=== PATIENT | male | born 1950 | race Caucasian/White ===

== ENCOUNTER → 2016-07-20 | Outpatient (CLI) | payer BC ==
[~2016-07-20] MED LIST: LSNUNK; bp med
--- NOTE | 2016-07-20 14:22 | DIAGNOSTIC IMAGING REPORT ---
RIGHT FOOT 3 VIEWS HISTORY: Acute foot pain, electrical battery fell on R foot Right COMPARISON: None. FINDINGS: No acute fracture or dislocation within the right foot. The Lisfranc joint is well aligned. 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 Small posterior calcaneal spur. Moderate osteoarthritis at the tibiotalar joint. Old, healed distal tibial fracture. No radiopaque foreign bodies. IMPRESSION: No acute fracture or dislocation within the right foot. Chronic and degenerative changes as described above. Electronically signed by: David Christine M.D. 07/20/2016 2:21 PM Dictated Date/Time: 07/20/2016 2:19 PM
== END | disposition home or self-care (01) ==
LOC: C.RADPV 13:39
PROVIDERS: ATTEND Nurse Practitioner
DX: M79.671 Pain in right foot (principal); M19.071 Primary osteoarthritis, right ankle and foot; M25.774 Osteophyte, right foot; M77.31 Calcaneal spur, right foot

== ENCOUNTER 2023-12-03 19:21 | Inpatient (IN) ==
--- NOTE | 2023-12-03 19:50 | Emergency Department Note ---
Impression & Plan Dyspnea ADMIT ED Provider Note HPI: History obtained from patient. The patient is a 73-year-old gentleman with history of small cell lung cancer, currently on chemotherapy, history of atrial fibrillation, on Eliquis, presents to the emergency department with a chief complaint of shortness of breath. Patient states he does have some baseline dyspnea with his history of lung cancer, he states today his shortness of breath seemed worse. Patient states "I could not get my breath". Patient denies any chest pain. On arrival here to the ED at rest in the bed the patient is saturating well on room air, he is otherwise hemodynamically stable on arrival, he denies any recent fever or cough. ROS: - Per HPI Differential Diagnosis: Pneumonia, CHF exacerbation, pulmonary edema, malignant pleural effusion, metastatic lung cancer, pulmonary embolism, amongst other potential pathologies. *Outpatient medications and allergy history reviewed. PE: General: Alert HEENT: Normocephalic, trachea midline Eyes: Extraocular eye movement is intact, no scleral erythema Pulmonary: Diminished left-sided lung sounds without any wheezing Cardio: Regular rate and rhythm GI: Abdomen is soft to palpation : No suprapubic tenderness MSK: No evidence of trauma or malformation of the extremities, no edema Skin: No evidence of rash Neuro: Alert, no focal deficits Psychiatric: Cooperative INDEPENDENT INTERPRETATIONS: school lunch monitor: (As interpreted by myself): - An order was placed for continuous cardiac monitoring - Patient was noted to be in sinus rhythm with a rate of 90 EKG: (As interpreted by myself): Rate: 98 Rhythm: Normal sinus rhythm Intervals: Within normal limits ST changes: No ST elevation Time: 7 Chest x-ray: (As interpreted by myself): Left lower lobe effusion Interventions provided in ED: -Packed red blood cell transfusion, platelet transfusion Medical Decision Making: IV was established and lab work obtained, patient was placed on athletic monitor. Lab work shows a leukopenia at 3.49, hemoglobin is low at 5.3, platelet count is also low at 20, INR is 2.0, CMP does not show any critical findings, troponin is negative. BNP is mildly elevated at 184, viral panel testing is negative. Chest x-ray suggestive of left-sided effusion. Patient does remain hemodynamically stable otherwise here in the ED. He was consented for transfusion who was in agreement. I did discuss his presentation with the patient's hematology/oncology provider, Dr. Ballesteros, he is in agreement for packed red blood cell transfusion as well as platelet transfusion, recommends goal of platelet count at 50 or above and stopping the patient's Eliquis. Patient does not note any recent bleeding or melena. I suspect given his pancytopenia that his anemia is likely related to his chemotherapy and some bone marrow suppression. I discussed the patient's findings with the on-call hospitalist, Dr. Abreu. CT imaging of the chest with contrast was ordered to further characterize the patient's effusion prior to admission. Patient is in agreement for admission and he was placed for admission in stable condition. Consultants/Discussions held with other healthcare providers: -Hematology/oncology, Dr. Ballesteros -Hospitalist, Dr. Abreu Disposition discussion held by myself with: -Patient * CRITICAL CARE TIME: ( 50 ) minutes -Stabilization of patient with symptomatic anemia with hemoglobin of 5.3 and platelet count of 20 requiring both packed red blood cell and platelet transfusions. Time spent at the bedside, interpretation of diagnostic studies, discussion with multiple other consulting physicians and arrangement of admission. Diagnosis: 1. Symptomatic anemia, acute 2. Thrombocytopenia, acute 3. History of small cell lung cancer with metastatic disease to the liver 4. Left-sided pleural effusion, acute Disposition: Admission Marck Moffett DO Emergency Medicine Past Med/Surg History Problem List (Updated 12/03/23 @ 23:21 by Marck Moffett DO) Dyspnea (Acute) Small cell lung cancer New onset atrial fibrillation Encounter for pre-operative examination Lung cancer Depression Pleural effusion Liver lesion, right lobe Abnormal CT of the abdomen Abnormal PSA acceleration with normal PSA BPH associated with nocturia (Chronic) Microscopic hematuria (Acute) Low back pain Abnormal skin growth Diabetes mellitus Urinary frequency GERD (gastroesophageal reflux disease) Hyperlipidemia (Chronic) Hypertension (Chronic) Medical History GERD (gastroesophageal reflux disease) Low back pain BPH (benign prostatic hyperplasia) Liver lesion Hx of pleural effusion (09/2023) Diabetes Depression Chronic cough Hyperlipidemia HTN (hypertension) History of COVID-19 (2020) Lung cancer (08/2023) Surgical History Port-A-Cath in place (11/16/23) History of thoracentesis (09/11/23) History of left knee replacement Hx of colonoscopy History of liver biopsy History of surgical procedure H/O oral surgery H/O skin graft Family History Father Diabetes Hypertension Denies family history of Ovarian cancer Prostate cancer Heart disease Myocardial infarction Breast cancer Colorectal cancer Stroke Social History Smoking Status: Former smoker Tobacco Type: Cigarettes and E-cigarettes / Vaping Age Started Using Tobacco: 21; packs per day: 1; Second Hand Exposure: No; Do You Dip or Chew Tobacco: No; Hx Alcohol Use: No Hx Substance Use: Yes (medical marijuana) Non-Prescribed Medications: Marijuana Last Used Substance Other:: 11/05/23 Preferred Language: Slovak Communication Ability: Effective Hearing Ability: Hard of Hearing Admissions Consultant Required: No Beliefs That Will Affect Care: None marital status: Single Current Living Situation: Alone current occupational status: retired How many Children do You have: 0 Feels Safe at Home: Yes Childhood Exposure to Second-Hand Smoke: Yes Diet: regular caffeine: Yes during the past year weight has: decreased > 10 lbs Dental Care, Regularly: Yes Physical Activity Frequency: Daily Seatbelt Use: always Sunscreen Use: No Assistive Devices: Denture - Upper, Denture - Lower and Glasses Allergies Allergies Allergy/AdvReac Type Severity Reaction Status Date / Time No Known Allergies Allergy Verified 11/16/23 05:55 Home Meds Home Medications Medication Instructions Recorded Confirmed multivitamin (Multiple Vitamins 1 tab PO DAILY 09/22/18 11/16/23 tablet) omega-3 acid ethyl esters 1 gram 1 cap PO DAILY 09/22/18 11/16/23 capsule potassium gluconate 595 mg (99 mg) 595 mg PO DAILY 09/22/18 11/16/23 tablet Medical Marijuana 1 dose PO HS appetite stimulant 11/06/23 11/16/23 dronabinol 10 mg capsule (Marinol) 10 mg PO QAM 11/06/23 11/16/23 alfuzosin 10 mg tablet,extended 10 mg PO DAILY 11/16/23 11/16/23 release 24 hr (Uroxatral) Previous Rx's Medication Instructions Recorded atorvastatin 10 mg tablet See Rx Instructions .Route 05/18/23 .COMPLEX #30 tabs albuterol sulfate 90 mcg/actuation 2 puff inhalation QID PRN 08/28/23 aerosol inhaler shortness of breath or wheezing #8.5 grams codeine 10 mg-guaifenesin 100 mg/5 5 ml PO Q6H PRN cough #120 mL 09/28/23 mL oral liquid metformin 500 mg tablet,extended 500 mg PO BID #60 tabs 09/29/23 release 24 hr benzonatate 200 mg capsule 200 mg PO TID PRN cough #20 caps 10/23/23 apixaban 5 mg tablet (Eliquis) 5 mg PO BID #60 tabs 11/16/23 metoprolol succinate 25 mg capsule 25 mg PO DAILY #30 ea 11/16/23 sprinkle, ext. release 24 hr Results & Data (ED) Vital Signs Vital Signs - 24 hr 12/03/23 19:22 12/03/23 19:26 12/03/23 19:31 Temperature 36.8 C Temperature Source Oral Pulse Rate 97 H 97 H Pulse Rate [Apical] Pulse Rate from SpO2 Sensor Respiratory Rate 17 Blood Pressure 140/71 Blood Pressure [Left Arm] Blood Pressure Mean 94 Blood Pressure Mean [Left Arm] Pulse Oximetry 98 Oxygen Delivery Method Room Air Room Air Sepsis Recent Fever Within 48 Hours No Sepsis New/Unexplained Change in Mental Status N/A Sepsis Action Taken by Nursing No Action Required 12/03/23 19:44 12/03/23 20:00 12/03/23 20:00 Temperature Temperature Source Pulse Rate 88 Pulse Rate [Apical] 90 Pulse Rate from SpO2 Sensor Respiratory Rate 20 23 Blood Pressure 132/65 Blood Pressure [Left Arm] 138/71 Blood Pressure Mean 106 Blood Pressure Mean [Left Arm] 93 Pulse Oximetry 98 98 97 Oxygen Delivery Method Room Air Room Air Sepsis Recent Fever Within 48 Hours Sepsis New/Unexplained Change in Mental Status Sepsis Action Taken by Nursing 12/03/23 20:47 12/03/23 21:11 12/03/23 21:31 Temperature Temperature Source Pulse Rate 99 H Pulse Rate [Apical] 88 91 H Pulse Rate from SpO2 Sensor 99 H Respiratory Rate 20 22 24 Blood Pressure Blood Pressure [Left Arm] 129/69 138/70 Blood Pressure Mean Blood Pressure Mean [Left Arm] 89 92 Pulse Oximetry 97 96 97 Oxygen Delivery Method Sepsis Recent Fever Within 48 Hours Sepsis New/Unexplained Change in Mental Status Sepsis Action Taken by Nursing 12/03/23 22:00 12/03/23 22:20 12/03/23 22:33 Temperature 37.0 C 37.0 C Temperature Source Oral Oral Pulse Rate 88 87 83 Pulse Rate [Apical] Pulse Rate from SpO2 Sensor Respiratory Rate 24 18 18 Blood Pressure 146/71 H 146/71 H 138/71 Blood Pressure [Left Arm] Blood Pressure Mean 112 96 93 Blood Pressure Mean [Left Arm] Pulse Oximetry 97 98 96 Oxygen Delivery Method Sepsis Recent Fever Within 48 Hours Sepsis New/Unexplained Change in Mental Status Sepsis Action Taken by Nursing 12/03/23 22:36 12/03/23 22:47 12/03/23 22:49 Temperature 36.9 C 36.9 C 36.9 C Temperature Source Oral Oral Oral Pulse Rate 89 85 86 Pulse Rate [Apical] Pulse Rate from SpO2 Sensor Respiratory Rate 24 24 Blood Pressure 132/70 136/80 137/70 Blood Pressure [Left Arm] Blood Pressure Mean 90 98 92 Blood Pressure Mean [Left Arm] Pulse Oximetry 99 97 Oxygen Delivery Method Sepsis Recent Fever Within 48 Hours Sepsis New/Unexplained Change in Mental Status Sepsis Action Taken by Nursing 12/03/23 22:51 Temperature 36.9 C Temperature Source Oral Pulse Rate 86 Pulse Rate [Apical] Pulse Rate from SpO2 Sensor Respiratory Rate 24 Blood Pressure 138/73 Blood Pressure [Left Arm] Blood Pressure Mean 94 Blood Pressure Mean [Left Arm] Pulse Oximetry 98 Oxygen Delivery Method Sepsis Recent Fever Within 48 Hours Sepsis New/Unexplained Change in Mental Status Sepsis Action Taken by Nursing Laboratory Data 12/03/23 19:30 12/03/23 19:30 Lab Results 12/03/23 12/03/23 12/03/23 Range/Units 19:30 20:41 21:09 WBC 3.49 L (4.8-10.8) K/ul RBC 1.78 L (4.70-6.10) M/uL Hgb 5.3 L* (14.0-18.0) g/dl Hct 15.8 L* (42.0-52.0) % MCV 88.8 (80.0-100.0) fL MCH 29.8 (25.0-34.0) pg MCHC 33.5 (32.0-36.0) g/dL RDW Std Deviation 50.2 H (36.4-46.3) fL RDW Coeff of Allan 15.7 H (11.5-14.5) % Plt Count 20 L* (130-400) K/uL MPV 12.2 (9.4-12.4) fL Immature Gran % (Auto) 0.3 % Neut % (Auto) 60.5 % Lymph % (Auto) 31.5 % Preble % (Auto) 6.3 % Eos % (Auto) 1.1 % Baso % (Auto) 0.3 % Neut # (Auto) 2.11 (1.40-6.50) K/uL Lymph # (Auto) 1.10 L (1.20-3.40) K/uL Preble # (Auto) 0.22 (0.11-0.59) K/uL Eos # (Auto) 0.04 (0.00-0.50) K/uL Baso # (Auto) 0.01 (0.00-0.20) K/uL Immature Gran # (Auto) 0.01 (0.01-0.20) K/uL Absolute Nucleated RBC 0.02 (0.00-0.12) K/uL Nucleated RBC % (auto) 0.6 % Platelet Estimate Signific. Decreased L (Normal) PT 20.8 H (9.0-12.0) Seconds INR 2.0 H (0.9-1.1) Sodium 134 L (136-145) mmol/L Potassium 4.0 (3.5-5.1) mmol/L Chloride 101 (98-107) mmol/L Carbon Dioxide 24 (21-32) mmol/L Anion Gap 9 (3-11) BUN 14 (6-23) mg/dl Creatinine 0.72 (0.6-1.4) mg/dl Est Cr Clr Drug Dosing 84.9 ml/min eGFR 97.07 BUN/Creatinine Ratio 19.4 (10-20) Glucose 127 H (70-99(Fasting)) mg/dl Calcium 8.4 L (8.6-10.3) mg/dl Total Bilirubin 0.8 (0.2-1.0) mg/dl AST 40 H (13-39) U/L ALT 18 (7-52) U/L Alkaline Phosphatase 204 H (34-104) U/L Troponin I High Sens 7.3 (0-20) pg/ml B-Natriuretic Peptide 184 H (0-100) pg/ml Total Protein 5.7 L (6.0-8.3) gm/dl Albumin 3.3 L (3.4-5.0) gm/dl Globulin 2.4 L (2.5-4.0) gm/dl Albumin/Globulin Ratio 1.4 (0.9-2) Adenovirus (PCR) (NotDetected) B. pertussis DNA (PCR) (NotDetected) B.parapertussis DNA PCR (NotDetected) C. pneumoniae DNA (PCR) (NotDetected) Coronavirus OC43 (PCR) (NotDetected) Coronavirus HKU1 (PCR) (NotDetected) Coronavirus 229E (PCR) (NotDetected) SARS-CoV-2 (PCR) (NotDetected) Coronavirus NL63 (PCR) (NotDetected) Human Metapneumovir PCR (NotDetected) Influenza Type A (PCR) (NotDetected) Influenza Type B (PCR) (NotDetected) M. pneumoniae (PCR) (NotDetected) Parainfluenza 1 (PCR) (NotDetected) Parainfluenza 2 (PCR) (NotDetected) Parainfluenza 3 (PCR) (NotDetected) Parainfluenza 4 (PCR) (NotDetected) RSV (PCR) (NotDetected) Entero/Rhino (PCR) (NotDetected) Blood Type O Positive Blood Type Recheck O Positive Antibody Screen NEGATIVE Crossmatch See Detail 12/03/23 Range/Units Unknown WBC (4.8-10.8) K/ul RBC (4.70-6.10) M/uL Hgb (14.0-18.0) g/dl Hct (42.0-52.0) % MCV (80.0-100.0) fL MCH (25.0-34.0) pg MCHC (32.0-36.0) g/dL RDW Std Deviation (36.4-46.3) fL RDW Coeff of Allan (11.5-14.5) % Plt Count (130-400) K/uL MPV (9.4-12.4) fL Immature Gran % (Auto) % Neut % (Auto) % Lymph % (Auto) % Preble % (Auto) % Eos % (Auto) % Baso % (Auto) % Neut # (Auto) (1.40-6.50) K/uL Lymph # (Auto) (1.20-3.40) K/uL Preble # (Auto) (0.11-0.59) K/uL Eos # (Auto) (0.00-0.50) K/uL Baso # (Auto) (0.00-0.20) K/uL Immature Gran # (Auto) (0.01-0.20) K/uL Absolute Nucleated RBC (0.00-0.12) K/uL Nucleated RBC % (auto) % Platelet Estimate (Normal) PT (9.0-12.0) Seconds INR (0.9-1.1) Sodium (136-145) mmol/L Potassium (3.5-5.1) mmol/L Chloride (98-107) mmol/L Carbon Dioxide (21-32) mmol/L Anion Gap (3-11) BUN (6-23) mg/dl Creatinine (0.6-1.4) mg/dl Est Cr Clr Drug Dosing ml/min eGFR BUN/Creatinine Ratio (10-20) Glucose (70-99(Fasting)) mg/dl Calcium (8.6-10.3) mg/dl Total Bilirubin (0.2-1.0) mg/dl AST (13-39) U/L ALT (7-52) U/L Alkaline Phosphatase (34-104) U/L Troponin I High Sens (0-20) pg/ml B-Natriuretic Peptide (0-100) pg/ml Total Protein (6.0-8.3) gm/dl Albumin (3.4-5.0) gm/dl Globulin (2.5-4.0) gm/dl Albumin/Globulin Ratio (0.9-2) Adenovirus (PCR) Not Detected (NotDetected) B. pertussis DNA (PCR) Not Detected (NotDetected) B.parapertussis DNA PCR Not Detected (NotDetected) C. pneumoniae DNA (PCR) Not Detected (NotDetected) Coronavirus OC43 (PCR) Not Detected (NotDetected) Coronavirus HKU1 (PCR) Not Detected (NotDetected) Coronavirus 229E (PCR) Not Detected (NotDetected) SARS-CoV-2 (PCR) Not Detected (NotDetected) Coronavirus NL63 (PCR) Not Detected (NotDetected) Human Metapneumovir PCR Not Detected (NotDetected) Influenza Type A (PCR) Not Detected (NotDetected) Influenza Type B (PCR) Not Detected (NotDetected) M. pneumoniae (PCR) Not Detected (NotDetected) Parainfluenza 1 (PCR) Not Detected (NotDetected) Parainfluenza 2 (PCR) Not Detected (NotDetected) Parainfluenza 3 (PCR) Not Detected (NotDetected) Parainfluenza 4 (PCR) Not Detected (NotDetected) RSV (PCR) Not Detected (NotDetected) Entero/Rhino (PCR) Not Detected (NotDetected) Blood Type Blood Type Recheck Antibody Screen Crossmatch Administered Medications Discontinued Medications Ioversol (Optiray 320 100ml) 94 ml IV ONCE ONE Stop: 12/03/23 21:01 Last Admin: 12/03/23 21:00 Dose: 94 ml Documented By: [place] [facility] Data Radiologist's Impression: Chest X-Ray 12/03/23 19:43 XR chest 1V portable CLINICAL HISTORY: Dyspnea COMPARISON STUDY: Chest CT August 31, 2023. PET/CT October 18, 2023. Chest radiograph November 16, 2023. FINDINGS: A left subclavian [id number] is in place. There is no pneumothorax. A moderate to large left pleural effusion has slightly increased since prior exam. Associated airspace opacity is present. This obscures the known left sided mass. Pulmonary vascular congestion is again noted. There are several old right rib fractures. IMPRESSION: 1. Increase in size of a moderate to large left pleural effusion. Associated airspace opacity obscures the known left-sided mass. 2. Pulmonary vascular congestion, similar to prior exam. 3. No pneumothorax. ACT 112: Negative or not required by law. Electronically signed by: Alex Granda M.D. 12/03/2023 8:[address] 12/03/23 20:07 Exam(s): CT CHEST With Contrast IV Amt: 94 ml optiray 320 EXAM: CT Chest With Intravenous Contrast CLINICAL HISTORY: eval L sided effusion. TECHNIQUE: Axial computed tomography images of the chest with intravenous contrast. CTDI is 15.98 mGy and DLP is 524.36 mGy-cm. Automated exposure control was utilized for the study. A dose lowering technique was utilized adhering to the principles of ALARA. CONTRAST: Patient received 94 ml optiray 320 of IV contrast COMPARISON: CT chest with contrast dated 08/31/2023 FINDINGS: Lungs: Interlobular septal thickening noted in the aerated anterior left upper lobe. The right lung remains well-aerated. There are subtle subcentimeter nodular changes involving the juxtapleural right lateral basal segment. Pleural space: The moderate left pleural effusion remains. No appreciable pleural nodularity or loculation. No pneumothorax. Heart: The cardiac chambers are upper normal limits. Trace pericardial effusion. Mediastinum: Interval increase in size of the abnormal mass, predominantly located in the hilar and subcarinal region, now measuring 8. 6 x 8.3 cm on a single transaxial image from 7 x 7.3 cm. The adjacent completely collapsed left lower lung is also larger in size and now demonstrates relative hypodense heterogeneous margins medially. Confluent subcarinal soft tissue mass is similar to slightly increased in size. Bones/joints: Unremarkable. No acute fracture. No dislocation. Soft tissues: Mild soft tissue fullness with fat stranding involving the inferior left thoracic soft tissues. No loculated fluid collection. Vasculature: The pulmonary artery branches serving the collapsed left lower lobe are attenuated, presumably from the lack of aeration or potentially from extrinsic compression by the mass. No filling defects noted. The thoracic aorta is normal in caliber. No dissection or aneurysm. Lymph nodes: Unremarkable. No enlarged lymph nodes. Liver: Extensive and diffuse metastatic disease nearly replacing the entire included superior to mid liver. Tubes, lines and devices: Left subclavian anne catheter with the tip in the superior vena cava. Other findings: Moderate LAD calcification. IMPRESSION: 1. Interval increase in size of the abnormal mass, predominantly located in the hilar and subcarinal region, now measuring 8.6 x 8.3 cm on a single transaxial image from 7 x 7.3 cm. The adjacent completely collapsed left lower lung is also larger in size and now demonstrates relative hypodense heterogeneous margins medially. Findings are consistent with advancing neoplastic process. 2. The moderate left pleural effusion remains. No appreciable pleural nodularity or loculation. 3. The right lung remains well-aerated. There are subtle subcentimeter nodular changes involving the juxtapleural right lateral basal segment. This may represent subtle alveolitis, distal small airways disease or subtle developing metastatic disease. 4. Extensive and diffuse metastatic disease nearly replacing the entire included superior to mid liver. This is progressive from the previous examination. Electronically signed by: Evan Benjamin MD 12/03/23 23:06 PM Discharge Plan Visit Data Chief Complaint: Shortness of Breath/Dyspnea Stated Complaint: SHORTNESS OF BREATH ED Provider: Marck Moffett Discharge Problem: Dyspnea Forms Stand Alone Forms: My [facility] Prescriptions Prescriptions: No Action atorvastatin 10 mg tablet See Rx Instructions .ROUTE .COMPLEX Qty: 30 11RF Dose Instruction: TAKE 1 TABLET BY MOUTH DAILY. Rx Instructions: TAKE 1 TABLET BY MOUTH DAILY. metformin 500 mg tablet extended release 24 hr 500 mg PO BID Qty: 60 11RF Rx Instructions: 1 tab in am for 2 weeks then 1 twice a day benzonatate 200 mg capsule 200 mg PO TID PRN (Reason: cough) Qty: 20 1RF omega-3 acid ethyl esters 1 gram capsule 1 cap PO DAILY potassium gluconate 595 mg (99 mg) tablet 595 mg PO DAILY multivitamin [Multiple Vitamins] tablet 1 tab PO DAILY codeine-guaifenesin 10-100 mg/5 mL liquid 5 ml PO Q6H PRN (Reason: cough) Qty: 120 0RF Rx Instructions: at bedtime albuterol sulfate 90 mcg/actuation HFA aerosol inhaler 2 puff inhalation QID PRN (Reason: shortness of breath or wheezing) Qty: 8.5 1RF dronabinol [Marinol] 10 mg Capsule 10 mg PO QAM Rx Instructions: administer before lunch and evening meal/dinner Medical Marijuana 1 dose PO HS alfuzosin [Uroxatral] 10 mg tablet extended release 24 hr 10 mg PO DAILY Rx Instructions: administer after the same meal each day metoprolol succinate 25 mg capsule,sprinkle,ER 24hr 25 mg PO DAILY Qty: 30 0RF Eliquis 5 mg tablet 5 mg PO BID Qty: 60 4RF Rx Instructions: start 11/18/23 Referrals Referrals: María Herrmann CRNP [Primary Care Provider] -
--- NOTE | 2023-12-03 20:07 | XRay Report ---
XR chest 1V portable CLINICAL HISTORY: Dyspnea COMPARISON STUDY: Chest CT August 31, 2023. PET/CT October 18, 2023. Chest radiograph November 15. FINDINGS: A left subclavian [id number] is in place. There is no pneumothorax. A moderate to large left pleural effusion has slightly increased since prior exam. Associated airspace opacity is present . This obscures the known left sided mass. Pulmonary vascular congestion is again noted. There are se veral old right rib fractures. IMPRESSION: 1. Increase in size of a moderate to large left pleural effusion. Associated airspace opacity obscure s the known left-sided mass. 2. Pulmonary vascular congestion, similar to prior exam. 3. No pneumothorax. ACT 112: Negative or not required by law. Electronically signed by: Alex Granda M.D. 12/03/2023 8:05 PM
[2023-12-03] MEDS ORDERED: SODIUM CHLORIDE 0.9% 100 ML IV PRN ×2 (20:09→20:51)
[2023-12-03 20:17] LABS: Hematocrit (blood only) 15.8 % (42.0-52.0); Hemoglobin 5.3 g/dl (14.0-18.0); Mean Corpuscular Hemoglobin 29.8 pg (25.0-34.0); Mean Corpuscular Hgb Conc 33.5 g/dL (32.0-36.0); Mean Corpuscular Volume 88.8 fL (80.0-100.0); RDW Coefficient of Variation 15.7 % (11.5-14.5); RDW Standard Deviation 50.2 fL (36.4-46.3); Red Blood Count 1.78 M/uL (4.70-6.10); White Blood Count 3.49 K/ul (4.8-10.8)
[2023-12-03 20:21] LABS: Albumin Globulin Ratio 1.4 (0.9-2); Albumin Level 3.3 gm/dl (3.4-5.0); BUN Creatinine Ratio 19.4 (10-20); Bilirubin,Total 0.8 mg/dl (0.2-1.0); Calcium 8.4 mg/dl (8.6-10.3); Creatinine Clr Calc Pharmacy 84.9 ml/min; Globulin 2.4 gm/dl (2.5-4.0); Total Protein 5.7 gm/dl (6.0-8.3)
[2023-12-03 20:27] LABS: Troponin I High Sensitivity 7.3 pg/ml (0-20)
[2023-12-03 20:28] LABS: Basophils # (auto) 0.01 K/uL (0.00-0.20); Basophils % (auto) 0.3 %; Eosinophils # (auto) 0.04 K/uL (0.00-0.50); Eosinophils % (auto) 1.1 %; Immature Granulocytes # (auto) 0.01 K/uL (0.01-0.20); Immature Granulocytes % (auto) 0.3 %; Lymphocytes % (auto) 31.5 %; Mean Platelet Volume 12.2 fL (9.4-12.4); Monocytes # (auto) 0.22 K/uL (0.11-0.59); Monocytes % (auto) 6.3 %; Neutrophils # (auto) 2.11 K/uL (1.40-6.50); Neutrophils % (auto) 60.5 %; Nucleated RBC # (auto) 0.02 K/uL (0.00-0.12); Nucleated RBC % (auto) 0.6 %; Platelet Count 20 K/uL (130-400); Platelet Estimate Signific. Decreased (Normal)
[2023-12-03 20:41] LABS: Prothrombin Time 20.8 Seconds (9.0-12.0)
[2023-12-03 20:48] LABS: Adenovirus PCR Not Detected (NotDetected); Bordetella parapertussis PCR Not Detected (NotDetected); Bordetella pertussis PCR Not Detected (NotDetected); Chlamydia pneumoniae PCR Not Detected (NotDetected); Coronavirus 229E PCR Not Detected (NotDetected); Coronavirus CoV-2 (COVID19)PCR Not Detected (NotDetected); Coronavirus HKU1 PCR Not Detected (NotDetected); Coronavirus NL63 PCR Not Detected (NotDetected); Coronavirus OC43PCR Not Detected (NotDetected); Human Metapneumovirus PCR Not Detected (NotDetected); Influenza A PCR Not Detected (NotDetected); Influenza B PCR Not Detected (NotDetected); Mycoplasma pneumoniae PCR Not Detected (NotDetected); Parainfluenza Virus 1 PCR Not Detected (NotDetected); Parainfluenza Virus 2 PCR Not Detected (NotDetected); Parainfluenza Virus 3 PCR Not Detected (NotDetected); Parainfluenza Virus 4 PCR Not Detected (NotDetected); Respiratory Syncytial VirusPCR Not Detected (NotDetected); Rhinovirus/Enterovirus PCR Not Detected (NotDetected)
[2023-12-03] MEDS: OPTIRAY 320 100ml IV ONE (21:00)
--- NOTE | 2023-12-03 22:07 | History & Physical Report ---
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 Ballesteros to review most recent CT Atrial fibrillation/hypertension/coagulopathy- Admit to monitored bed, currently in normal sinus rhythm INR 2.0, with repeat in a.m., question elevated secondary to liver dysfunction in addition to Eliquis Holding Eliquis as noted Continue metoprolol succinate Continue to hold amlodipine, lisinopril and HCTZ, as done at 11/16/2023 consult Diabetes mellitus- Hold metformin Placed on Accu-Cheks with NovoLog SSI History of Present Illness Chief Complaint: The patient presents to the emergency department complaining of coughing up blood on his second day of chemotherapy, had occasional blood trickling from his nose since that time, and has become progressively more short of breath since chemotherapy began on 11/20, 11/21, and 11/22. Primary Care Provider: JOSE Soria The patient is a 73-year-old male with a past medical history including small c ell lung cancer metastatic to liver and bone, new onset atrial fibrillation, depression, pleural effusion, BPH with LUTS, diabetes mellitus, GERD, hyperlipidemia and hypertension. He had a port placed in his left subclavian on 11/16/2023, and developed atrial fibrillation with RVR at that time, for which she was started on metoprolol succinate and Eliquis, and had amlodipine, lisinopril and HCTZ stopped. He began chemotherapy on 11/20, 11/21, 11/22. He notes that he coughed up blood on the second day of chemo, and has had nosebleed trickling ever since then. He had become short of breath since he had the hemoptysis, and has become more short of breath over the past few days. Allergies Allergy/AdvReac Type Severity Reaction Status Date / Time No Known Allergies Allergy Verified 11/16/23 05:55 Home Medications Medication Instructions Recorded Confirmed Type multivitamin (Multiple Vitamins 1 tab PO DAILY 09/22/18 11/16/23 History tablet) omega-3 acid ethyl esters 1 gram 1 cap PO DAILY 09/22/18 11/16/23 History capsule potassium gluconate 595 mg (99 mg) 595 mg PO DAILY 09/22/18 11/16/23 History tablet atorvastatin 10 mg tablet See Rx Instructions .Route 05/18/23 11/16/23 Rx .COMPLEX #30 tabs albuterol sulfate 90 mcg/actuation 2 puff inhalation QID PRN 08/28/23 11/16/23 Rx aerosol inhaler shortness of breath or wheezing #8.5 grams codeine 10 mg-guaifenesin 100 mg/5 5 ml PO Q6H PRN cough #120 mL 09/28/23 11/16/23 Rx mL oral liquid metformin 500 mg tablet,extended 500 mg PO BID #60 tabs 09/29/23 11/16/23 Rx release 24 hr benzonatate 200 mg capsule 200 mg PO TID PRN cough #20 caps 10/23/23 11/16/23 Rx Medical Marijuana 1 dose PO HS appetite stimulant 11/06/23 11/16/23 History dronabinol 10 mg capsule (Marinol) 10 mg PO QAM 11/06/23 11/16/23 History alfuzosin 10 mg tablet,extended 10 mg PO DAILY 11/16/23 11/16/23 History release 24 hr (Uroxatral) apixaban 5 mg tablet (Eliquis) 5 mg PO BID #60 tabs 11/16/23 Rx metoprolol succinate 25 mg capsule 25 mg PO DAILY #30 ea 11/16/23 Rx sprinkle, ext. release 24 hr Past Med/Surg History Problem List (Updated 12/04/23 @ 02:21 by Lamine Abreu MD) Metastatic cancer to bone Metastatic cancer to liver Thrombocytopenia due to drugs Anemia requiring transfusions Hx of pleural effusion (09/2023) s/p thoracentesis 09/11/23 moderate to large pleural effusion, unchanged per 10/18/23 PET scan Paroxysmal atrial fibrillation Dyspnea (Acute) Small cell lung cancer New onset atrial fibrillation Encounter for pre-operative examination Lung cancer Depression Pleural effusion Liver lesion, right lobe Abnormal CT of the abdomen Abnormal PSA acceleration with normal PSA BPH associated with nocturia (Chronic) Microscopic hematuria (Acute) Low back pain Abnormal skin growth Diabetes mellitus Urinary frequency GERD (gastroesophageal reflux disease) Hyperlipidemia (Chronic) Hypertension (Chronic) Medical History GERD (gastroesophageal reflux disease) Low back pain BPH (benign prostatic hyperplasia) Liver lesion Hx of pleural effusion (09/2023) Diabetes Depression Chronic cough Hyperlipidemia HTN (hypertension) History of COVID-19 (2020) Lung cancer (08/2023) Surgical History Port-A-Cath in place (11/16/23) History of thoracentesis (09/11/23) History of left knee replacement Hx of colonoscopy History of liver biopsy History of surgical procedure H/O oral surgery H/O skin graft Family History Father Diabetes Hypertension Denies family history of Ovarian cancer Prostate cancer Heart disease Myocardial infarction Breast cancer Colorectal cancer Stroke Social History Smoking Status: Former smoker Tobacco Type: Cigarettes and E-cigarettes / Vaping Age Started Using Tobacco: 21; packs per day: 1; Second Hand Exposure: No; Do You Dip or Chew Tobacco: No; Hx Alcohol Use: No Hx Substance Use: Yes Non-Prescribed Medications: Marijuana Last Used Substance: Unknown Last Used Substance Other:: 11/05/23 Substance Use Type Other:: Pt uses medical libra Preferred Language: Greek Communication Ability: Effective Hearing Ability: Hard of Hearing Desk Monitor Required: No Beliefs That Will Affect Care: None marital status: Single Current Living Situation: Alone current occupational status: retired How many Children do You have: 0 Other Information That Helps Us Care for You: No Feels Safe at Home: Yes Safety Concerns: Feels Safe At This Time Childhood Exposure to Second-Hand Smoke: Yes Diet: regular caffeine: Yes during the past year weight has: decreased > 10 lbs Dental Care, Regularly: Yes Physical Activity Frequency: Daily Seatbelt Use: always Sunscreen Use: No Assistive Devices: Cane and Glasses Review of Systems Review of Systems: The patient denies lower extremity swelling, sore throat, fevers, chills, sweats, nausea, vomiting, diarrhea , constipation, abdominal pain, pelvic pain, blood in urine or stool, dysuria, urinary frequency or urgency, lightheadedness, dizziness, headache, memory loss, loss of consciousness, rash, focal weakness, numbness or tingling in arms or legs, generalized arthralgias or myalgias, back or neck pain, or night sweats. The review of systems is otherwise negative other than for that already noted above, and at least 10 systems have been reviewed. Physical Exam Physical Exam: The patient is awake, alert and oriented 3, looks pale, normocephalic and atraumatic, lying in bed and in no acute distress. HEENT--PERRL, EOMI, mucous membranes and oropharynx dry. Neck--supple. No JVD. No bruits. Thyroid normal, trachea midline, no adenopathy. Heart--normal S1 and S2. No murmurs, rubs or gallops. Lungs--decreased breath sounds on the left Abdomen--normal bowel sounds and soft. Nontender. Nondistended Extremities-- No edema. Dermatologic--looks pale Neurologic--cranial nerves II through XII grossly intact. Rheumatologic--normal range of motion. Psychiatric--normal affect. Results & Data Results & Data Vital Signs (Past 12 Hours) Vital Signs Temp Pulse Pulse Resp BP BP Pulse Ox 12/03/23 21:31 91 H 24 138/70 97 12/03/23 20:47 88 20 129/69 97 12/03/23 20:00 90 20 138/71 98 12/03/23 19:44 98 12/03/23 19:31 12/03/23 19:26 97 H 12/03/23 19:22 36.8 C 97 H 17 140/71 98 O2 Del Method 12/03/23 21:31 12/03/23 20:47 12/03/23 20:00 Room Air 12/03/23 19:44 Room Air 12/03/23 19:31 Room Air 12/03/23 19:26 12/03/23 19:22 Room Air Laboratory Results Laboratory Results WBC 3.49 K/ul (4.8-10.8) L 12/03/23 19:30 RBC 1.78 M/uL (4.70-6.10) L 12/03/23 19:30 Hgb 5.3 g/dl (14.0-18.0) L* 12/03/23 19:30 Hct 15.8 % (42.0-52.0) L* 12/03/23 19:30 MCV 88.8 fL (80.0-100.0) 12/03/23 19:30 MCH 29.8 pg (25.0-34.0) 12/03/23 19:30 MCHC 33.5 g/dL (32.0-36.0) 12/03/23 19:30 RDW Std Deviation 50.2 fL (36.4-46.3) H 12/03/23 19:30 RDW Coeff of Allan 15.7 % (11.5-14.5) H 12/03/23 19:30 Plt Count 20 K/uL (130-400) L* 12/03/23 19:30 MPV 12.2 fL (9.4-12.4) 12/03/23 19:30 Immature Gran % (Auto) 0.3 % 12/03/23 19:30 Neut % (Auto) 60.5 % 12/03/23 19:30 Lymph % (Auto) 31.5 % 12/03/23 19:30 [place] % (Auto) 6.3 % 12/03/23 19:30 Eos % (Auto) 1.1 % 12/03/23 19:30 Baso % (Auto) 0.3 % 12/03/23 19:30 Neut # (Auto) 2.11 K/uL (1.40-6.50) 12/03/23 19:30 Lymph # (Auto) 1.10 K/uL (1.20-3.40) L 12/03/23 19:30 [place] # (Auto) 0.22 K/uL (0.11-0.59) 12/03/23 19:30 Eos # (Auto) 0.04 K/uL (0.00-0.50) 12/03/23 19:30 Baso # (Auto) 0.01 K/uL (0.00-0.20) 12/03/23 19:30 Immature Gran # (Auto) 0.01 K/uL (0.01-0.20) 12/03/23 19:30 Absolute Nucleated RBC 0.02 K/uL (0.00-0.12) 12/03/23 19:30 Nucleated RBC % (auto) 0.6 % 12/03/23 19:30 Platelet Estimate Signific. Decreased (Normal) L 12/03/23 19:30 PT 20.8 Seconds (9.0-12.0) H 12/03/23 19:30 INR 2.0 (0.9-1.1) H 12/03/23 19:30 Sodium 134 mmol/L (136-145) L 12/03/23 19:30 Potassium 4.0 mmol/L (3.5-5.1) 12/03/23 19:30 Chloride 101 mmol/L (98-107) 12/03/23 19:30 Carbon Dioxide 24 mmol/L (21-32) 12/03/23 19:30 Anion Gap 9 (3-11) 12/03/23 19:30 BUN 14 mg/dl (6-23) 12/03/23 19:30 Creatinine 0.72 mg/dl (0.6-1.4) 12/03/23 19:30 Est Cr Clr Drug Dosing 84.9 ml/min 12/03/23 19:30 eGFR 97.07 12/03/23 19:30 BUN/Creatinine Ratio 19.4 (10-20) 12/03/23 19:30 Glucose 127 mg/dl (70-99(Fasting)) H 12/03/23 19:30 Calcium 8.4 mg/dl (8.6-10.3) L 12/03/23 19:30 Total Bilirubin 0.8 mg/dl (0.2-1.0) 12/03/23 19:30 AST 40 U/L (13-39) H 12/03/23 19:30 ALT 18 U/L (7-52) 12/03/23 19:30 Alkaline Phosphatase 204 U/L (34-104) H 12/03/23 19:30 Troponin I High Sens 7.3 pg/ml (0-20) 12/03/23 19:30 B-Natriuretic Peptide 184 pg/ml (0-100) H 12/03/23 19:30 Total Protein 5.7 gm/dl (6.0-8.3) L 12/03/23 19:30 Albumin 3.3 gm/dl (3.4-5.0) L 12/03/23 19:30 Globulin 2.4 gm/dl (2.5-4.0) L 12/03/23 19:30 Albumin/Globulin Ratio 1.4 (0.9-2) 12/03/23 19:30 Adenovirus (PCR) Not Detected (NotDetected) 12/03/23 Unknown B. pertussis DNA (PCR) Not Detected (NotDetected) 12/03/23 Unknown B.parapertussis DNA PCR Not Detected (NotDetected) 12/03/23 Unknown C. pneumoniae DNA (PCR) Not Detected (NotDetected) 12/03/23 Unknown Coronavirus OC43 (PCR) Not Detected (NotDetected) 12/03/23 Unknown Coronavirus HKU1 (PCR) Not Detected (NotDetected) 12/03/23 Unknown Coronavirus 229E (PCR) Not Detected (NotDetected) 12/03/23 Unknown SARS-CoV-2 (PCR) Not Detected (NotDetected) 12/03/23 Unknown Coronavirus NL63 (PCR) Not Detected (NotDetected) 12/03/23 Unknown Human Metapneumovir PCR Not Detected (NotDetected) 12/03/23 Unknown Influenza Type A (PCR) Not Detected (NotDetected) 12/03/23 Unknown Influenza Type B (PCR) Not Detected (NotDetected) 12/03/23 Unknown M. pneumoniae (PCR) Not Detected (NotDetected) 12/03/23 Unknown Parainfluenza 1 (PCR) Not Detected (NotDetected) 12/03/23 Unknown Parainfluenza 2 (PCR) Not Detected (NotDetected) 12/03/23 Unknown Parainfluenza 3 (PCR) Not Detected (NotDetected) 12/03/23 Unknown Parainfluenza 4 (PCR) Not Detected (NotDetected) 12/03/23 Unknown RSV (PCR) Not Detected (NotDetected) 12/03/23 Unknown Entero/Rhino (PCR) Not Detected (NotDetected) 12/03/23 Unknown Blood Type O Positive 12/03/23 20:41 Blood Type Recheck O Positive 12/03/23 21:09 Antibody Screen NEGATIVE 12/03/23 20:41 Crossmatch See Detail 12/03/23 20:41 Impressions Chest X-Ray 12/03/23 19:43 XR chest 1V portable CLINICAL HISTORY: Dyspnea COMPARISON STUDY: Chest CT August 31, 2023. PET/CT October 18, 2023. Chest radiograph November 16, 2023. FINDINGS: A left subclavian [id number] is in place. There is no pneumothorax. A moderate to large left pleural effusion has slightly increased since prior exam. Associated airspace opacity is present. This obscures the known left sided mass. Pulmonary vascular congestion is again noted. There are several old right rib fractures. IMPRESSION: 1. Increase in size of a moderate to large left pleural effusion. Associated airspace opacity obscures the known left-sided mass. 2. Pulmonary vascular congestion, similar to prior exam. 3. No pneumothorax. ACT 112: Negative or not required by law. Electronically signed by: Alex Granda M.D. 12/03/2023 8:[address] 12/03/23 20:07 Exam(s): CT CHEST With Contrast IV Amt: 94 ml optiray 320 EXAM: CT Chest With Intravenous Contrast CLINICAL HISTORY: eval L sided effusion. TECHNIQUE: Axial computed tomography images of the chest with intravenous contrast. CTDI is 15.98 mGy and DLP is 524.36 mGy-cm. Automated exposure control was utilized for the study. A dose lowering technique was utilized adhering to the principles of ALARA. CONTRAST: Patient received 94 ml optiray 320 of IV contrast COMPARISON: CT chest with contrast dated 08/31/2023 FINDINGS: Lungs: Interlobular septal thickening noted in the aerated anterior left upper lobe. The right lung remains well-aerated. There are subtle subcentimeter nodular changes involving the juxtapleural right lateral basal segment. Pleural space: The moderate left pleural effusion remains. No appreciable pleural nodularity or loculation. No pneumothorax. Heart: The cardiac chambers are upper normal limits. Trace pericardial effusion. Mediastinum: Interval increase in size of the abnormal mass, predominantly located in the hilar and subcarinal region, now measuring 8. 6 x 8.3 cm on a single transaxial image from 7 x 7.3 cm. The adjacent completely collapsed left lower lung is also larger in size and now demonstrates relative hypodense heterogeneous margins medially. Confluent subcarinal soft tissue mass is similar to slightly increased in size. Bones/joints: Unremarkable. No acute fracture. No dislocation. Soft tissues: Mild soft tissue fullness with fat stranding involving the inferior left thoracic soft tissues. No loculated fluid collection. Vasculature: The pulmonary artery branches serving the collapsed left lower lobe are attenuated, presumably from the lack of aeration or potentially from extrinsic compression by the mass. No filling defects noted. The thoracic aorta is normal in caliber. No dissection or aneurysm. Lymph nodes: Unremarkable. No enlarged lymph nodes. Liver: Extensive and diffuse metastatic disease nearly replacing the entire included superior to mid liver. Tubes, lines and devices: Left subclavian anne catheter with the tip in the superior vena cava. Other findings: Moderate LAD calcification. IMPRESSION: 1. Interval increase in size of the abnormal mass, predominantly located in the hilar and subcarinal region, now measuring 8.6 x 8.3 cm on a single transaxial image from 7 x 7.3 cm. The adjacent completely collapsed left lower lung is also larger in size and now demonstrates relative hypodense heterogeneous margins medially. Findings are consistent with advancing neoplastic process. 2. The moderate left pleural effusion remains. No appreciable pleural nodularity or loculation. 3. The right lung remains well-aerated. There are subtle subcentimeter nodular changes involving the juxtapleural right lateral basal segment. This may represent subtle alveolitis, distal small airways disease or subtle developing metastatic disease. 4. Extensive and diffuse metastatic disease nearly replacing the entire included superior to mid liver. This is progressive from the previous examination. 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 D69.59; T50.905A Metastatic cancer to liver C78.7 Metastatic cancer to bone C79.51 Paroxysmal atrial fibrillation I48.0 Type 2 diabetes mellitus without complication, without long-term current use of insulin E11.9 Diabetes mellitus type: type 2 Diabetes mellitus intermodal dispatcher insulin use: without intermediate use Diabetes mellitus complication status: without complication GERD (gastroesophageal reflux disease) K21.9 Pure hypercholesterolemia E78.00 Hyperlipidemia type: pure hypercholesterolemia Primary hypertension I10 Hypertension type: primary hypertension (8) Diabetes mellitus Diabetes mellitus type: type 2 Diabetes mellitus intermediate insulin use: without intermediate use Diabetes mellitus complication status: without complication Qualified Code(s): E11.9 - Type 2 diabetes mellitus without complications (10) Hyperlipidemia Hyperlipidemia type: pure hypercholesterolemia Qualified Code(s): E78.00 - Pure hypercholesterolemia, unspecified (11) Hypertension Hypertension type: primary hypertension Qualified Code(s): I10 - Essential (primary) hypertension
--- NOTE | 2023-12-03 23:06 | CT Scan Report ---
Exam(s): CT CHEST With Contrast IV Amt: 94 ml optiray 320 EXAM: CT Chest With Intravenous Contrast CLINICAL HISTORY: eval L sided effusion. TECHNIQUE: Axial computed tomography images of the chest with intravenous contrast. CTDI is 15.98 mGy and DLP is 524.36 mGy-cm. Automated exposure control was utilized for the study. A dose lowering technique was utilized adhering to the principles of ALARA. CONTRAST: Patient received 94 ml optiray 320 of IV contrast COMPARISON: CT chest with contrast dated 08/31/2023 FINDINGS: Lungs: Interlobular septal thickening noted in the aerated anterior left upper lobe. The right lung remains well-aerated. There are subtle subcentimeter nodular changes involving the juxtapleural right lateral basal segment. Pleural space: The moderate left pleural effusion remains. No appreciable pleural nodularity or loculation. No pneumothorax. Heart: The cardiac chambers are upper normal limits. Trace pericardial effusion. Mediastinum: Interval increase in size of the abnormal mass, predominantly located in the hilar and subcarinal region, now measuring 8. 6 x 8.3 cm on a single transaxial image from 7 x 7.3 cm. The adjacent completely collapsed left lower lung is also larger in size and now demonstrates relative hypodense heterogeneous margins medially. Confluent subcarinal soft tissue mass is similar to slightly increased in size. Bones/joints: Unremarkable. No acute fracture. No dislocation. Soft tissues: Mild soft tissue fullness with fat stranding involving the inferior left thoracic soft tissues. No loculated fluid collection. Vasculature: The pulmonary artery branches serving the collapsed left lower lobe are attenuated, presumably from the lack of aeration or potentially from extrinsic compression by the mass. No filling defects noted. The thoracic aorta is normal in caliber. No dissection or aneurysm. Lymph nodes: Unremarkable. No enlarged lymph nodes. Liver: Extensive and diffuse metastatic disease nearly replacing the entire included superior to mid liver. Tubes, lines and devices: Left subclavian anne catheter with the tip in the superior vena cava. Other findings: Moderate LAD calcification. IMPRESSION: 1. Interval increase in size of the abnormal mass, predominantly located in the hilar and subcarinal region, now measuring 8.6 x 8.3 cm on a single transaxial image from 7 x 7.3 cm. The adjacent completely collapsed left lower lung is also larger in size and now demonstrates relative hypodense heterogeneous margins medially. Findings are consistent with advancing neoplastic process. 2. The moderate left pleural effusion remains. No appreciable pleural nodularity or loculation. 3. The right lung remains well-aerated. There are subtle subcentimeter nodular changes involving the juxtapleural right lateral basal segment. This may represent subtle alveolitis, distal small airways disease or subtle developing metastatic disease. 4. Extensive and diffuse metastatic disease nearly replacing the entire included superior to mid liver. This is progressive from the previous examination. Electronically signed by: Evan Benjamin MD 12/03/23 23:06 PM
[2023-12-04] MEDS ORDERED: ONDANSETRON INJ 2 MG/ML 2 ML VIAL IV PRN (00:05)
[2023-12-04] MEDS ORDERED: BENZONATATE 100 MG CAPSULE PO PRN (00:05)
[2023-12-04] MEDS ORDERED: guaiFENesin/CODEINE 100MG/10MG 5ML UDC PO PRN (00:05)
[2023-12-04] MEDS ORDERED: ALBUTEROL HFA 8 GM INHALER INH PRN (00:05)
[2023-12-04] MEDS ORDERED: GLUCOSE 40% GEL 15 GM TUBE PO PRN (00:05)
[2023-12-04] MEDS ORDERED: ACETAMINOPHEN 325 MG TAB PO PRN (00:05)
[2023-12-04] MEDS ORDERED: GLUCOSE 10 TAB/TUBE PO PRN (00:05)
[2023-12-04] MEDS ORDERED: DEXTROSE 50% 50 ML SYRINGE IV PRN (00:05)
[2023-12-04] MEDS ORDERED: CARBOHYDRATES FOR HYPOGLYCEMIA PO PRN (00:05)
[2023-12-04] MEDS ORDERED: GLUCAGON FOR INJ 1 MG VIAL SQ PRN (00:05)
[2023-12-04] MEDS: INSULIN ASPART PER UNIT CHARGE SC SCH ×2 (05:58→17:11)
[2023-12-04 06:53] LABS: Hematocrit (blood only) 19.9 % (42.0-52.0); Hemoglobin 6.7 g/dl (14.0-18.0); Mean Corpuscular Hemoglobin 28.6 pg (25.0-34.0); Mean Corpuscular Hgb Conc 33.7 g/dL (32.0-36.0); Mean Platelet Volume 11.7 fL (9.4-12.4); Nucleated RBC # (auto) 0.02 K/uL (0.00-0.12); Nucleated RBC % (auto) 0.7 %; Platelet Count 17 K/uL (130-400); RDW Coefficient of Variation 15.3 % (11.5-14.5); RDW Standard Deviation 46.6 fL (36.4-46.3); Red Blood Count 2.34 M/uL (4.70-6.10); White Blood Count 2.92 K/ul (4.8-10.8)
[2023-12-04 07:17] LABS: Albumin Globulin Ratio 1.5 (0.9-2); Albumin Level 3.1 gm/dl (3.4-5.0); BUN Creatinine Ratio 20.3 (10-20); Calcium 8.3 mg/dl (8.6-10.3); Creatinine Clr Calc Pharmacy 94.8 ml/min; Globulin 2.1 gm/dl (2.5-4.0); Magnesium 1.7 mg/dl (1.7-2.4); Potassium 3.9 mmol/L (3.5-5.1); Total Protein 5.2 gm/dl (6.0-8.3)
[2023-12-04 07:28] LABS: INR 1.8 (0.9-1.1); Partial Thromboplastin Ratio 1.4; Partial Thromboplastin Time 37 Seconds (21-31); Prothrombin Time 18.5 Seconds (9.0-12.0)
[2023-12-04 07:29] LABS: Estimated Average Glucose 128 mg/dl; Hemoglobin A1C 6.1 % (4.5-5.6)
[2023-12-04] MEDS ORDERED: SODIUM CHLORIDE 0.9% 100 ML IV PRN ×2 (07:38→07:40)
[2023-12-04 08:01] LABS: Basophils # (auto) 0.01 K/uL (0.00-0.20); Basophils % (auto) 0.3 %; Eosinophils # (auto) 0.03 K/uL (0.00-0.50); Lymphocytes # (auto) 1.23 K/uL (1.20-3.40); Lymphocytes % (auto) 42.1 %; Monocytes # (auto) 0.27 K/uL (0.11-0.59); Monocytes % (auto) 9.2 %; Neutrophils # (auto) 1.38 K/uL (1.40-6.50); Neutrophils % (auto) 47.4 %; RBC Morphology Unremarkable
[2023-12-04] MEDS: METOPROLOL SUCC 25MG EXT REL TAB PO SCH (08:20)
[2023-12-04] MEDS: MULTIVITAMIN TAB PO SCH (08:20)
[2023-12-04] MEDS: ATORVASTATIN 10 MG TAB PO SCH (08:21)
[2023-12-04] MEDS: TAMSULOSIN HCL 0.4 MG CAP PO SCH (08:21)
--- NOTE | 2023-12-04 12:48 | Electrocardiogram Report ---
Test Reason : Blood Pressure : */* mmHG Vent. Rate : 98 BPM Atrial Rate : 98 BPM P-R Int : 148 ms QRS Dur : 78 ms QT Int : 330 ms P-R-T Axes : 68 45 87 degrees QTcB Int : 421 ms Normal sinus rhythm Nonspecific T wave abnormality Abnormal ECG When compared with ECG of 16-Nov-2023 09:43, No significant change was found Confirmed by Chele Sethi ([id number]) on 12/04/2023 12:47:39 PM Referred By: REFERRED SELF Confirmed By: Chele Sethi
--- NOTE | 2023-12-04 12:50 | Electrocardiogram Report ---
Test Reason : Blood Pressure : */* mmHG Vent. Rate : 77 BPM Atrial Rate : 77 BPM P-R Int : 162 ms QRS Dur : 88 ms QT Int : 402 ms P-R-T Axes : 70 48 48 degrees QTcB Int : 454 ms Normal sinus rhythm Normal ECG When compared with ECG of 03-Dec-2023 19:27, (unconfirmed) Nonspecific T wave abnormality no longer evident in Lateral leads Confirmed by Chele Sethi ([id number]) on 12/04/2023 12:50:25 PM Referred By: REFERRED SELF Confirmed By: Chele Sethi
--- NOTE | 2023-12-04 15:18 | Oncology Consultation ---
Date of Consultation December 04, 2023 Assessment & Plan (1) Small cell lung cancer: will resume outpatient management of the patient's lung cancer once the patient is discharged. He will resume palliative systemic chemotherapy with atezolizumab and Trilociclo with for consideration of bone marrow to prevent further myelosuppression (2) Thrombocytopenia due to drugs: recommend keeping a platelet count close to 30,000/mcL, transfuse platelets if he is actively bleeding. Hold all anticoagulation as long as the platelet count is less than 50,000 (3) Anemia requiring transfusions: transfuse packed red blood cells to maintain a hemoglobin level Greater than7. Plan medical oncology will continue to follow the patient make appropriate recommendations. Thank you for this interesting oncological consult. History of Present Illness Reason for Consultation: Extensive stage small cell lung cancer Attending Physician: Torres Rothman History of Present Illness Diagnosis: Extensive Stage Small Cell Lung Cancer Date of diagnosis: 10/03/2023 Stage: Stage IV Pathology: FINAL DIAGNOSIS Liver, left lobe (left lobe liver biopsy): - Metastatic small cell carcinoma is seen. - See comment. Flow cytometry results: Findings suggestive of metastatic carcinoma (see comment) PET CT scan 10/18/2023: IMPRESSION: 1. Redemonstration of the large left hilar/perihilar mass demonstrate intense FDG uptake. 2. A moderate to large left pleural effusion, unchanged. No associated FDG uptake. 3. FDG avid hepatic and osseous metastatic disease. 4. A few scattered subcentimeter nodules within the right lung which do not demonstrate abnormal FDG uptake but are likely below the threshold for PET imaging. These bear watching on future examinations to exclude metastatic disease. 5. Enlarged and FDG avid gastrohepatic, periportal, and retroperitoneal lymph nodes consistent with metastatic disease. 6. Additional findings as described above. MRI brain, 10/06/2023: IMPRESSION: 1. No acute intracranial abnormality. 2. Specifically, there is no MRI evidence of intracranial metastatic disease. Chest x-ray 08/29/2023 IMPRESSION: Dense consolidation within the left lung base with a moderate left pleural effusion and a lobular hilar/infrahilar density. Findings are concerning for a central obstructing mass with left lower lobe collapse/consolidation. Therefore, follow-up contrast-enhanced chest CT is recommended for further evaluation. This report was called/faxed to the referring physician following dictation. CT chest, 08/31/2023 IMPRESSION: 1. Large left perihilar mass is seen, concerning for necrotic malignant focus. Postobstructive atelectasis of the left lower lobe is seen. 2. Left pleural thickening and pleural effusion compatible with malignant effusion. 3. Enlarged subcarinal lymph node with focal necrosis. 4. Numerous hepatic hypodensities, new from 2022, concerning for metastases. Anne hepatis lymphadenopathy also concerning for metastatic disease. Nonemergent CT abdomen pelvis is recommended to assess for metastatic disease below the diaphragm. CT abdomen pelvis, 09/06/2023: IMPRESSION: 1. Innumerable metastases are now seen within the liver compatible with worsening metastatic disease. 2. Gastrohepatic and anne hepatis lymphadenopathy is also seen, concerning for metastasis. Thoracentesis, 09/11/2023: 1300 mL of pleural fluid was removed with 1 L sent to lab for analysis. The catheter was removed and Band-Aid applied. The patient tolerated the procedure well. A chest x-ray will be obtained and vital signs will be monitored postprocedure. Pleural fluid, 09/11/2023: Pleural fluid, side unspecified (cytologic analysis): - Many reactive mesothelial cells, vacuolated mesothelial cells and degenerated mesothelial cells are seen. - No tumor seen. - Please see microscopic description. Screened by on at . at 1621 the patient is a very pleasant 73-year-old man with a past history of extensive stage small cell lung cancer who is admitted after his first cycle of palliative systemic chemotherapy with carboplatin etoposide atezolizumab. Previously we had ordered trilaciclib after the first cycle of chemotherapy however it was not approved by insurance and time, currently the patient is admitted to the hospital with severe anemia, thrombocytopenia requiring blood and platelet transfusion. He is very tired and fatigued, has no energy whatsoever. Allergies Allergy/AdvReac Type Severity Reaction Status Date / Time No Known Allergies Allergy Verified 11/16/23 05:55 Home Medications Medication Instructions Recorded Confirmed Type multivitamin (Multiple Vitamins 1 tab PO DAILY 09/22/18 11/16/23 History tablet) omega-3 acid ethyl esters 1 gram 1 cap PO DAILY 09/22/18 11/16/23 History capsule potassium gluconate 595 mg (99 mg) 595 mg PO DAILY 09/22/18 11/16/23 History tablet atorvastatin 10 mg tablet See Rx Instructions .Route 05/18/23 11/16/23 Rx .COMPLEX #30 tabs albuterol sulfate 90 mcg/actuation 2 puff inhalation QID PRN 08/28/23 11/16/23 Rx aerosol inhaler shortness of breath or wheezing #8.5 grams codeine 10 mg-guaifenesin 100 mg/5 5 ml PO Q6H PRN cough #120 mL 09/28/23 11/16/23 Rx mL oral liquid metformin 500 mg tablet,extended 500 mg PO BID #60 tabs 09/29/23 11/16/23 Rx release 24 hr benzonatate 200 mg capsule 200 mg PO TID PRN cough #20 caps 10/23/23 11/16/23 Rx Medical Marijuana 1 dose PO HS appetite stimulant 11/06/23 11/16/23 History dronabinol 10 mg capsule (Marinol) 10 mg PO QAM 11/06/23 11/16/23 History alfuzosin 10 mg tablet,extended 10 mg PO DAILY 11/16/23 11/16/23 History release 24 hr (Uroxatral) apixaban 5 mg tablet (Eliquis) 5 mg PO BID #60 tabs 11/16/23 Rx metoprolol succinate 25 mg capsule 25 mg PO DAILY #30 ea 11/16/23 Rx sprinkle, ext. release 24 hr Patient History Medical History GERD (gastroesophageal reflux disease) Low back pain BPH (benign prostatic hyperplasia) Liver lesion Hx of pleural effusion (09/2023) Diabetes Depression Chronic cough Hyperlipidemia HTN (hypertension) History of COVID-19 (2020) Lung cancer (08/2023) Surgical History Port-A-Cath in place (11/16/23) History of thoracentesis (09/11/23) History of left knee replacement Hx of colonoscopy History of liver biopsy History of surgical procedure H/O oral surgery H/O skin graft Family History Father Diabetes Hypertension Denies family history of Ovarian cancer Prostate cancer Heart disease Myocardial infarction Breast cancer Colorectal cancer Stroke Social History Smoking Status: Former smoker Tobacco Type: Cigarettes and E-cigarettes / Vaping Age Started Using Tobacco: 21; packs per day: 1; Second Hand Exposure: No; Do You Dip or Chew Tobacco: No; Hx Alcohol Use: No Hx Substance Use: Yes Non-Prescribed Medications: Marijuana Last Used Substance: Unknown Last Used Substance Other:: 11/05/23 Substance Use Type Other:: Pt uses medical libra Preferred Language: Bahraini Communication Ability: Effective Hearing Ability: Hard of Hearing Hvac Installation Technician Required: No Beliefs That Will Affect Care: None marital status: Single Current Living Situation: Alone current occupational status: retired How many Children do You have: 0 Feels Safe at Home: Yes Childhood Exposure to Second-Hand Smoke: Yes Diet: regular caffeine: Yes during the past year weight has: decreased > 10 lbs Dental Care, Regularly: Yes Physical Activity Frequency: Daily Seatbelt Use: always Sunscreen Use: No Assistive Devices: Cane Review of Systems Review of Systems: All systems reviewed & are unremarkable except as noted in HPI & below Fatigue, tiredness, lack of energy Constitutional: as per Subjective / HPI Eyes: as per Subjective / HPI Ear, Nose, Mouth, Throat: as per Subjective / HPI Respiratory: as per Subjective / HPI Cardiovascular: as per Subjective / HPI Gastrointestinal: as per Subjective / HPI Genitourinary: + as per Subjective / HPI Musculoskeletal: as per Subjective / HPI Integumentary: as per Subjective / HPI Neurologic: as per Subjective / HPI Psychiatric: as per Subjective / HPI Endocrine: as per Subjective / HPI Hematologic / Lymphatic: as per Subjective / HPI Allergy / Immunological: as per Subjective / HPI Physical Exam Constitutional: WD/WN, vitals as above Eyes: PERRL, conjunctivae normal, anicteric sclerae ENMT: external ear and nose normal, oropharynx normal Neck: trachea midline, no thyromegaly Respiratory: normal respiratory effort, lungs clear to auscultation Cardiovascular: RRR, no murmur, no edema Gastrointestinal (Abdomen): normal bowel sounds, soft, nontender, no hepatosplenomegaly Musculoskeletal: no cyanosis or clubbing, extremities motor strength 5/5 Skin: no rashes, warm and dry Neurologic: patellar DTR's 2+ bilat, sensation intact Psychiatric: A+Ox3, euthymic affect Lymphatic: no cervical or axillary lymphadenopathy Results & Data Vital Signs (Past 12 Hours) Vital Signs Temp Pulse Pulse Resp BP BP Pulse Ox 12/04/23 14:20 84 12/04/23 11:08 36.7 C 76 21 151/78 H 95 12/04/23 10:08 37.2 C 84 24 152/76 H 96 12/04/23 09:08 36.7 C 79 20 151/75 H 95 12/04/23 08:38 36.9 C 78 16 155/78 H 96 12/04/23 08:23 36.8 C 83 16 160/76 H 96 12/04/23 08:13 12/04/23 08:07 37.0 C 81 16 145/70 H 95 12/04/23 07:48 37.0 C 85 20 150/67 H 95 12/04/23 07:23 80 12/04/23 03:18 37.1 C 78 20 149/78 H 97 O2 Del Method 12/04/23 14:20 12/04/23 11:08 12/04/23 10:08 12/04/23 09:08 12/04/23 08:38 12/04/23 08:23 12/04/23 08:13 Room Air 12/04/23 08:07 12/04/23 07:48 Room Air 12/04/23 07:23 12/04/23 03:18
[2023-12-04 16:03] LABS: Hemoglobin 7.6 g/dl (14.0-18.0)
--- NOTE | 2023-12-04 19:48 | Hospitalist Progress Note ---
Date of Service December 04, 2023 Assessment & Plan (1) Anemia requiring transfusions: (2) Small cell lung cancer: (3) Hx of pleural effusion: (4) Thrombocytopenia due to drugs: (5) Metastatic cancer to liver: (6) Metastatic cancer to bone: (7) Paroxysmal atrial fibrillation: (8) Diabetes mellitus: (9) GERD (gastroesophageal reflux disease): (10) Hyperlipidemia: (11) Hypertension: Plan Anemia requiring transfusion- Hemoglobin 5.3 on admission, with base 12.1 Hemoccult all stools May be a combination of chemotherapy and being on Eliquis- Holding Eliquis Chemotherapy took place on 11/20, 11/21 and 11/22 required a third unit of PRBC. hemoglobin is now above 7. will continue to monitor. No signs of active bleed, likely due to chemo. 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 Ballesteros to review most recent CT will discuss with pulmonary need for pleurex catheter. Atrial fibrillation/hypertension/coagulopathy- Admit to monitored bed, currently in normal sinus rhythm INR 2.0, with repeat in a.m., question elevated secondary to liver dysfunction in addition to Eliquis Holding Eliquis as noted Continue metoprolol succinate Continue to hold amlodipine, lisinopril and HCTZ, as done at 11/16/2023 consult Diabetes mellitus- Hold metformin Placed on Accu-Cheks with NovoLog SSI Admission and Anticipated Discharge Date Admission Date: December 03, 2023 Subjective 73 yo male reports no newsymptoms. He is feeling better in regards to his symptoms. Review of Systems Review of Systems: All systems reviewed & are unremarkable except as noted in HPI & below Physical Exam Physical Exam: The patient is awake, alert and oriented 3, no longer looks pale, normocephalic and atraumatic, lying in bed and in no acute distress. HEENT--PERRL, EOMI, mucous membranes and oropharynx dry. Neck--supple. No JVD. No bruits. Thyroid normal, trachea midline, no adenopathy. Heart--normal S1 and S2. No murmurs, rubs or gallops. Lungs--decreased breath sounds on the left Abdomen--normal bowel sounds and soft. Nontender. Nondistended Extremities-- No edema. Results & Data Results & Data Vital Signs (Past 12 Hours) Vital Signs Temp Pulse Pulse Resp BP BP Pulse Ox 12/04/23 19:18 37.2 C 79 20 155/73 H 95 12/04/23 17:00 12/04/23 16:04 36.7 C 95 H 16 166/83 H 95 12/04/23 14:20 84 12/04/23 11:08 36.7 C 76 21 151/78 H 95 12/04/23 10:08 37.2 C 84 24 152/76 H 96 12/04/23 09:08 36.7 C 79 20 151/75 H 95 12/04/23 08:38 36.9 C 78 16 155/78 H 96 12/04/23 08:23 36.8 C 83 16 160/76 H 96 12/04/23 08:13 12/04/23 08:07 37.0 C 81 16 145/70 H 95 O2 Del Method 12/04/23 19:18 Room Air 12/04/23 17:00 Room Air 12/04/23 16:04 Room Air 12/04/23 14:20 12/04/23 11:08 12/04/23 10:08 12/04/23 09:08 12/04/23 08:38 12/04/23 08:23 12/04/23 08:13 Room Air 12/04/23 08:07 PG Care Time/CCT Total # of Minutes Spent Total Time Spent with Patient: Total time spent is greater than 50% in coordination of care (as documented) at patient's floor/unit and/or counseling patient: Coding Level of Care Code 01935 SUB INP/OBS CARE 2/35MIN Diagnoses Anemia requiring transfusions D64.9 Small cell lung cancer C34.90 Hx of pleural effusion Z87.09 Thrombocytopenia due to drugs D69.59; T50.905A Metastatic cancer to liver C78.7 Metastatic cancer to bone C79.51 Paroxysmal atrial fibrillation I48.0 Type 2 diabetes mellitus without complication, without long-term current use of insulin E11.9 Diabetes mellitus complication status: without complication Diabetes mellitus residential insulin use: without residential use Diabetes mellitus type: type 2 GERD (gastroesophageal reflux disease) K21.9 Pure hypercholesterolemia E78.00 Hyperlipidemia type: pure hypercholesterolemia Primary hypertension I10 Hypertension type: primary hypertension (8) Diabetes mellitus Diabetes mellitus complication status: without complication Diabetes mellitus residential insulin use: without medical terminologist use Diabetes mellitus type: type 2 Qualified Code(s): E11.9 - Type 2 diabetes mellitus without complications (10) Hyperlipidemia Hyperlipidemia type: pure hypercholesterolemia Qualified Code(s): E78.00 - Pure hypercholesterolemia, unspecified (11) Hypertension Hypertension type: primary hypertension Qualified Code(s): I10 - Essential (primary) hypertension
[2023-12-04 23:34] LABS: Hematocrit (blood only) 22.3 % (42.0-52.0); Hemoglobin 7.6 g/dl (14.0-18.0); Mean Corpuscular Hgb Conc 34.1 g/dL (32.0-36.0); Mean Corpuscular Volume 85.1 fL (80.0-100.0); Mean Platelet Volume 12.1 fL (9.4-12.4); Nucleated RBC # (auto) 0.05 K/uL (0.00-0.12); Nucleated RBC % (auto) 1.6 %; Platelet Count 18 K/uL (130-400); RDW Coefficient of Variation 15.9 % (11.5-14.5); RDW Standard Deviation 47.2 fL (36.4-46.3); Red Blood Count 2.62 M/uL (4.70-6.10)
[2023-12-04 23:55] LABS: Basophils # (auto) 0.01 K/uL (0.00-0.20); Basophils % (auto) 0.3 %; Eosinophils # (auto) 0.07 K/uL (0.00-0.50); Eosinophils % (auto) 2.2 %; Immature Granulocytes # (auto) 0.01 K/uL (0.01-0.20); Immature Granulocytes % (auto) 0.3 %; Lymphocytes # (auto) 1.19 K/uL (1.20-3.40); Lymphocytes % (auto) 37.2 %; Monocytes # (auto) 0.34 K/uL (0.11-0.59); Monocytes % (auto) 10.6 %; Neutrophils # (auto) 1.58 K/uL (1.40-6.50); Neutrophils % (auto) 49.4 %; Polychromasia 1+
[2023-12-05 06:39] LABS: Albumin Globulin Ratio 1.4 (0.9-2); BUN Creatinine Ratio 15.6 (10-20); Calcium 8.1 mg/dl (8.6-10.3); Creatinine Clr Calc Pharmacy 87.4 ml/min; Globulin 2.1 gm/dl (2.5-4.0); Magnesium 1.7 mg/dl (1.7-2.4); Potassium 3.6 mmol/L (3.5-5.1); Total Protein 5.1 gm/dl (6.0-8.3)
[2023-12-05 06:49] LABS: Hematocrit (blood only) 21.6 % (42.0-52.0); Hemoglobin 7.5 g/dl (14.0-18.0); Mean Corpuscular Hemoglobin 29.2 pg (25.0-34.0); Mean Corpuscular Hgb Conc 34.7 g/dL (32.0-36.0); Mean Platelet Volume 12.6 fL (9.4-12.4); Nucleated RBC # (auto) 0.03 K/uL (0.00-0.12); Nucleated RBC % (auto) 1.1 %; Platelet Count 21 K/uL (130-400); RDW Coefficient of Variation 15.9 % (11.5-14.5); RDW Standard Deviation 47.4 fL (36.4-46.3); Red Blood Count 2.57 M/uL (4.70-6.10); White Blood Count 2.83 K/ul (4.8-10.8)
[2023-12-05 06:59] LABS: Anisocytosis Present
[2023-12-05 07:00] LABS: Macrocytosis Present
[2023-12-05 07:19] LABS: ALC (manual) 1.02 K/uL (1.2-3.4); ANC (manual) 1.58 K/uL (1.4-6.5); Anisocytosis Present; Basophils # (manual) 0.03 K/uL (0-0.2); Basophils % (manual) 1 %; Eosinophils # (manual) 0.11 K/uL (0-0.50); Eosinophils % (manual) 4 %; INR 1.7 (0.9-1.1); Lymphocytes # (manual) 1.02 K/uL (1.2-3.4); Lymphocytes % (manual) 36 %; Monocytes # (manual) 0.08 K/uL (0.11-0.59); Monocytes % (manual) 3 %; Neutrophils # (manual) 1.58 K/uL (1.40-6.50); Neutrophils % (manual) 56 %; Partial Thromboplastin Ratio 1.3; Partial Thromboplastin Time 34 Seconds (21-31); Platelet Estimate Signific. Decreased (Normal); Polychromasia 1+; Prothrombin Time 17.6 Seconds (9.0-12.0)
[2023-12-05 07:31] VITALS: RESP 18; O2SAT 95
--- NOTE | 2023-12-05 08:17 | Pulmonary Consultation ---
Date of Consultation December 05, 2023 Assessment & Plan (1) Hx of pleural effusion: (2) Lung cancer: Laterality: unspecified laterality Lung location: unspecified part of lung Qualified Code(s): C34.90 - Malignant neoplasm of unspecified part of unspecified bronchus or lung Plan Impression: 73-year-old male with stage IV small cell lung cancer currently undergoing palliative chemotherapy. He has complete atelectasis of the left lower lobe with a small pleural effusion. He is profoundly thrombocytopenic. Recommendations: 1. Pleural effusion: Previous cytology was negative. The effusion is small currently and the majority of the opacity identified on chest x-ray represents atelectasis of the entire left lower lobe. As there is no aeration of this lung, drainage of the effusion would be unlikely to improve any symptoms and regardless the patient is on room air with minimal shortness of breath currently. There is no mortality benefit from placing a Pleurx catheter at this point in time and his platelet counts preclude any invasive procedures. Pleurx catheter may be beneficial if we could improve aeration however again the central obstructing mass does not allow any air entry into the left lower lobe so draining the effusion would be unlikely to improve any of his respiratory mechanics. 2. Metastatic small cell cancer: Continue chemotherapy under the direction of medical oncology. Pulmonary will sign off at this point in time. Feel free to contact us with questions or concerns History of Present Illness Attending Physician: Torres Rothman History of Present Illness Asked by hospitalist to evaluate this patient with metastatic small cell lung cancer and small pleural effusion for potential Pleurx catheter. History is obtained from discussion with the patient as well as review the electronic medical record. The patient is a 73-year-old male who in September was noted to have a large left perihilar mass with multiple liver lesions. Liver biopsy was recommended. This confirmed metastatic small cell carcinoma. The patient also underwent a thoracentesis on 09/11/2023 with removal of 1.3 L. Cytology from the pleural fluid was negative. MRI of the brain was unrevealing. He underwent port placement was initiated on chemotherapy carboplatin, etoposide, atezolizumab on 11/21/2023. He was admitted to the hospital 12/03/2023 with scant hemoptysis and epistaxis as well as shortness of breath. CT of the chest demonstrated opacification of the left lower lobe with a small pleural effusion and pulmonary was consulted for Pleurx catheter placement. The patient is awake alert conversant and sitting up in bed eating breakfast. He is on room air. He thinks his breathing is improved. Allergies Allergy/AdvReac Type Severity Reaction Status Date / Time No Known Allergies Allergy Verified 11/16/23 05:55 Home Medications Medication Instructions Recorded Confirmed Type multivitamin (Multiple Vitamins 1 tab PO DAILY 09/22/18 11/16/23 History tablet) omega-3 acid ethyl esters 1 gram 1 cap PO DAILY 09/22/18 11/16/23 History capsule potassium gluconate 595 mg (99 mg) 595 mg PO DAILY 09/22/18 11/16/23 History tablet atorvastatin 10 mg tablet See Rx Instructions .Route 05/18/23 11/16/23 Rx .COMPLEX #30 tabs albuterol sulfate 90 mcg/actuation 2 puff inhalation QID PRN 08/28/23 11/16/23 Rx aerosol inhaler shortness of breath or wheezing #8.5 grams codeine 10 mg-guaifenesin 100 mg/5 5 ml PO Q6H PRN cough #120 mL 09/28/2311/29 Rx mL oral liquid metformin 500 mg tablet,extended 500 mg PO BID #60 tabs 09/29/23 11/16/23 Rx release 24 hr benzonatate 200 mg capsule 200 mg PO TID PRN cough #20 caps 10/23/23 11/16/23 Rx Medical Marijuana 1 dose PO HS appetite stimulant 11/06/23 11/16/23 History dronabinol 10 mg capsule (Marinol) 10 mg PO QAM 11/06/23 11/16/23 History alfuzosin 10 mg tablet,extended 10 mg PO DAILY 11/16/23 11/16/23 History release 24 hr (Uroxatral) apixaban 5 mg tablet (Eliquis) 5 mg PO BID #60 tabs 11/16/23 Rx metoprolol succinate 25 mg capsule 25 mg PO DAILY #30 ea 11/16/23 Rx sprinkle, ext. release 24 hr Patient History Medical History GERD (gastroesophageal reflux disease) Low back pain BPH (benign prostatic hyperplasia) Liver lesion Hx of pleural effusion (09/2023) Diabetes Depression Chronic cough Hyperlipidemia HTN (hypertension) History of COVID-19 (2020) Lung cancer (08/2023) Surgical History Port-A-Cath in place (11/16/23) History of thoracentesis (09/11/23) History of left knee replacement Hx of colonoscopy History of liver biopsy History of surgical procedure H/O oral surgery H/O skin graft Family History Father Diabetes Hypertension Denies family history of Ovarian cancer Prostate cancer Heart disease Myocardial infarction Breast cancer Colorectal cancer Stroke Social History Smoking Status: Former smoker Tobacco Type: Cigarettes and E-cigarettes / Vaping Age Started Using Tobacco: 21; packs per day: 1; Second Hand Exposure: No; Do You Dip or Chew Tobacco: No; Hx Alcohol Use: No Hx Substance Use: Yes Non-Prescribed Medications: Marijuana Last Used Substance: Unknown Last Used Substance Other:: 11/05/23 Substance Use Type Other:: Pt uses medical libra Preferred Language: Mexican Communication Ability: Effective Hearing Ability: Hard of Hearing Solar Installation Manager Required: No Beliefs That Will Affect Care: None marital status: Single Current Living Situation: Alone current occupational status: retired How many Children do You have: 0 Feels Safe at Home: Yes Childhood Exposure to Second-Hand Smoke: Yes Diet: regular caffeine: Yes during the past year weight has: decreased > 10 lbs Dental Care, Regularly: Yes Physical Activity Frequency: Daily Seatbelt Use: always Sunscreen Use: No Assistive Devices: Cane Review of Systems Review of Systems: All systems reviewed & are unremarkable except as noted in Subjective Physical Exam Constitutional: WD/WN, vitals as above Eyes: PERRL, conjunctivae normal, anicteric sclerae Neck: trachea midline, no thyromegaly Respiratory: no respiratory distress, no labored breathing, no cough and not tachypneic Auscultation: + diminished lung sounds; no crackles and no wheezes Cardiovascular: RRR, no murmur, no edema Gastrointestinal (Abdomen): normal bowel sounds, soft, nontender, no hepatosplenomegaly Skin: no rashes, warm and dry Psychiatric: A+Ox3, euthymic affect Results & Data Results & Data Vital Signs (Past 12 Hours) Vital Signs Temp Pulse Pulse Resp BP Pulse Ox O2 Del Method 12/05/23 07:30 36.7 C 74 18 146/73 H 95 Room Air 12/05/23 02:23 36.9 C 76 20 148/76 H 96 Room Air 12/04/23 23:30 Room Air 12/04/23 23:00 66 12/04/23 22:34 37.5 C 87 18 127/64 94 Room Air Critical Care Results & Data Vital Signs (Past 12 Hours) Vital Signs Temp Pulse Pulse Resp BP Pulse Ox O2 Del Method 12/05/23 07:30 36.7 C 74 18 146/73 H 95 Room Air 12/05/23 02:23 36.9 C 76 20 148/76 H 96 Room Air 12/04/23 23:30 Room Air 12/04/23 23:00 66 12/04/23 22:34 37.5 C 87 18 127/64 94 Room Air Lab & Micro Results (Past 24 Hours) RBC 2.57 M/uL (4.70-6.10) L 12/05/23 WBC 2.83 K/ul (4.8-10.8) L 12/05/23 Hgb 7.5 g/dl (14.0-18.0) L 12/05/23 Hct 21.6 % (42.0-52.0) L 12/05/23 MCV 84.0 fL (80.0-100.0) 12/05/23 MCH 29.2 pg (25.0-34.0) 12/05/23 MCHC 34.7 g/dL (32.0-36.0) 12/05/23 RDW Standard Deviation 47.4 fL (36.4-46.3) H 12/05/23 RDW Coefficient of Variation 15.9 % (11.5-14.5) H 12/05/23 Plt Count 21 K/uL (130-400) L* 12/05/23 MPV 12.6 fL (9.4-12.4) H 12/05/23 Nucleated Red Blood Cells % (auto) 1.1 % 12/04 Nucleated RBC Absolute Count (auto) 0.03 K/uL (0.00-0.12) 1 Neutrophils (%) (Auto) 49.4 % 12/04/23 Lymphocytes (%) (Auto) 37.2 % 12/04/23 Monocytes # (Auto) 0.34 K/uL (0.11-0.59) 12/04/23 Eosinophils # (Auto) 0.07 K/uL (0.00-0.50) 12/04/23 Immature Granulocyte % (Auto) 0.3 % 12/04/23 Neutrophils # (Auto) 1.58 K/uL (1.40-6.50) 12/04/23 Lymphocytes # (Auto) 1.19 K/uL (1.20-3.40) L 12/04/23 Monocytes # (Auto) 0.34 K/uL (0.11-0.59) 12/04/23 Eosinophils # (Auto) 0.07 K/uL (0.00-0.50) 12/04/23 Basophils # (Auto) 0.01 K/uL (0.00-0.20) 12/04/23 Immature Granulocyte # (Auto) 0.01 K/uL (0.01-0.20) 4 ANC 1.58 K/uL (1.4-6.5) 12/05/23 ALC 1.02 K/uL (1.2-3.4) L 12/05/23 Neutrophils % (Manual) 56 % 12/05/23 Lymphocytes % (Manual) 36 % 12/05/23 Monocytes % (Manual) 3 % 12/05/23 Eosinophils % (Manual) 4 % 12/05/23 Basophils % (Manual) 1 % 12/05/23 Neutrophils # (Manual) 1.58 K/uL (1.40-6.50) 12/05/23 Lymphocytes # (Manual) 1.02 K/uL (1.2-3.4) L 12/05/23 Monocytes # (Manual) 0.08 K/uL (0.11-0.59) L 12/05/23 Eosinophils # (Manual) 0.11 K/uL (0-0.50) 12/05/23 Basophils # (Manual) 0.03 K/uL (0-0.2) 12/05/23 Polychromasia 1+ 12/05/23 Anisocytosis Present 12/05/23 Na 139 mmol/L (136-145) 12/05/23 K 3.6 mmol/L (3.5-5.1) 12/05/23 Cl 106 mmol/L (98-107) 12/05/23 CO2 25 mmol/L (21-32) 12/05/23 Anion Gap 8 (3-11) 12/05/23 BUN 10 mg/dl (6-23) 12/05/23 Creatinine 0.64 mg/dl (0.6-1.4) 12/05/23 BUN/Creatinine Ratio 15.6 (10-20) 12/05/23 Glu 91 mg/dl (70-99(Fasting)) 12/05/23 Ca 8.1 mg/dl (8.6-10.3) L 12/05/23 Total Bilirubin 1.0 mg/dl (0.2-1.0) 12/05/23 AST 36 U/L (13-39) 12/05/23 ALT 13 U/L (7-52) 12/05/23 Alkaline Phosphatase 172 U/L (34-104) H 12/05/23 TP 5.1 gm/dl (6.0-8.3) L 12/05/23 Albumin 3.0 gm/dl (3.4-5.0) L 12/05/23 Globulin 2.1 gm/dl (2.5-4.0) L 12/05/23 Albumin/Globulin Ratio 1.4 (0.9-2) 12/05/23 Mg 1.7 mg/dl (1.7-2.4) 12/05/23 05:55 Calcium Level 8.1 mg/dl (8.6-10.3) L 12/05/23 05:55 Prothromb Time International Ratio 1.7 (0.9-1.1) H 12/05/23 05 :55 I & O Totals 24 Hours 12/04/23 12/05/23 12/06/23 06:59 06:59 06:59 Intake Total 820 / 820 582 / 582 Output Total 700 / 700 200 / 200 Balance 120 / 120 382 / 382 Cumulative 12/03/23 19:08 thru 12/05/23 06:00 Intake Total 1402 Output Total 900 Balance 502 RT Ventilator Mngmt (Last Documented) Ventilator Ordered Settings Respiratory Rate 18 12/05/23 07:30 Ventilator - PT Measurements Respiratory Rate 18 PG Care Time/CCT Total # of Minutes Spent Total Time Spent with Patient: Total time spent is greater than 50% in coordination of care (as documented) at patient's floor/unit and/or counseling patient: Coding Level of Care Code 68821 IN/OBS CONSULT LVL 4,60M Diagnoses Hx of pleural effusion Z87.09 Malignant neoplasm of lung, unspecified laterality, unspecified part of lung C34.90 Laterality: unspecified laterality Lung location: unspecified part of lung
--- NOTE | 2023-12-05 11:16 | Discharge Summary ---
Discharge Summary Date of Service December 05, 2023 Principal Dx & Hospital Course #1 = Principal Diagnosis (1) Anemia requiring transfusions: (2) Small cell lung cancer: (3) Hx of pleural effusion: (4) Thrombocytopenia due to drugs: (5) Metastatic cancer to liver: (6) Metastatic cancer to bone: (7) Paroxysmal atrial fibrillation: (8) Diabetes mellitus: (9) GERD (gastroesophageal reflux disease): (10) Hyperlipidemia: (11) Hypertension: Plan Antineoplastic chemotherapy induced pancytopenia Anemia requiring transfusion- Hemoglobin 5.3 on admission, with base 12.1 Hemoccult all stools May be a combination of chemotherapy and being on Eliquis- Holding Eliquis Chemotherapy took place on 11/20, 11/21 and 11/22 Patient required 3 units of PRBC. Hemoglobin with 2 readings above 7. No signs of active bleed, likely due to chemo. Discussed with hematology, ok to discharge patient. Hematology will schedule followup labs and followup appointment. 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 Ballesteros to review most recent CT COnsulted pulmonary: patient does not need a Pleurex catheter at the moment. Atrial fibrillation/hypertension/coagulopathy- Admit to monitored bed, currently in normal sinus rhythm INR 2.0, with repeat in a.m., question elevated secondary to liver dysfunction in addition to Eliquis Holding Eliquis as noted Continue metoprolol succinate resume home meds. Diabetes mellitus- resume home meds Admission HPI Per Admitting Provider The patient is a 73-year-old male with a past medical history including small cell lung cancer metastatic to liver and bone, new onset atrial fibrillation, depression, pleural effusion, BPH with LUTS, diabetes mellitus, GERD, hyperlipidemia and hypertension. He had a port placed in his left subclavian on 11/16/2023, and developed atrial fibrillation with RVR at that time, for which she was started on metoprolol succinate and Eliquis, and had amlodipine, lisinopril and HCTZ stopped. He began chemotherapy on 11/20, 11/21, 11/22. He notes that he coughed up blood on the second day of chemo, and has had nosebleed trickling ever since then. He had become short of breath since he had the hemoptysis, and has become more short of breath over the past few days. Discharge Exam The patient is awake, alert and oriented 3, no longer looks pale, normocephalic and atraumatic, lying in bed and in no acute distress. HEENT--PERRL, EOMI, mucous membranes and oropharynx dry. Neck--supple. No JVD. No bruits. Thyroid normal, trachea midline, no adenopathy. Heart--normal S1 and S2. No murmurs, rubs or gallops. Lungs--decreased breath sounds on the left Abdomen--normal bowel sounds and soft. Nontender. Nondistended Extremities-- No edema. Discharge Plan Discharge Items Patient Disposition: Home - Self-Care Reason For Visit: PANCYTOPENIA, POST CHEMO, ANEMIA REQUIRING PRBC'S Discharge Diagnosis: Pancytopenia Activity: Resume your previous activity Non-emergency contact: Primary Care Provider Call non-emergency contact if: you have any medication questions Follow-up/Referrals: María Herrmann CRNP [Primary Care Provider] - 12/12/23 10:30 am (Hospital follow up scheduled December 11 at 10:30 María Herrmann) Diet: Regular and Carb Consistent or DM2 Addtl Attending Provider Instructions: Followup with Dr. Ballesteros in 1-2 weeks. He will order blood work. Followup with PCP in 1-2 weeks. Pending Studies at Discharge: No Stand-Alone Forms: [facility], Smoking Cessation Medications and DC Order Prescriptions: Continued atorvastatin 10 mg tablet See Rx Instructions .ROUTE .COMPLEX Qty: 30 11RF Dose Instruction: TAKE 1 TABLET BY MOUTH DAILY. Rx Instructions: TAKE 1 TABLET BY MOUTH DAILY. metformin 500 mg tablet extended release 24 hr 500 mg PO BID Qty: 60 11RF Rx Instructions: 1 tab in am for 2 weeks then 1 twice a day benzonatate 200 mg capsule 200 mg PO TID PRN (Reason: cough) Qty: 20 1RF omega-3 acid ethyl esters 1 gram capsule 1 cap PO DAILY potassium gluconate 595 mg (99 mg) tablet 595 mg PO DAILY multivitamin [Multiple Vitamins] tablet 1 tab PO DAILY codeine-guaifenesin 10-100 mg/5 mL liquid 5 ml PO Q6H PRN (Reason: cough) Qty: 120 0RF Rx Instructions: at bedtime albuterol sulfate 90 mcg/actuation HFA aerosol inhaler 2 puff inhalation QID PRN (Reason: shortness of breath or wheezing) Qty: 8.5 1RF dronabinol [Marinol] 10 mg Capsule 10 mg PO QAM Rx Instructions: administer before lunch and evening meal/dinner Medical Marijuana 1 dose PO HS alfuzosin [Uroxatral] 10 mg tablet extended release 24 hr 10 mg PO DAILY Rx Instructions: administer after the same meal each day metoprolol succinate 25 mg capsule,sprinkle,ER 24hr 25 mg PO DAILY Qty: 30 0RF Held Eliquis 5 mg tablet 5 mg PO BID Qty: 60 4RF Hold Instructions: Resume on 12/19/23. Rx Instructions: start 11/18/23 Discharge Orders: Discharge Order (Routine); Ordered 12/05/23 Ordered By: Torres Haas/Other Patient Handouts: Managing Type 2 Diabetes Admission Data Admit Date/Time: 12/03/23 22:07 Attending Provider: Torres Rothman Admit Provider: Lamine Abreu Primary Care Provider: María Herrmann Other Providers: Jomar Ballesteros; Dexter Sandoval Other Interventions: Discharge Summary Assessment (RN) Last Done: 12/05/23 13:04 Hospital Stay Data Consultations 12/03/23 21:11 ED Decision to Admit Stat 12/04/23 00:05 Consult Hematology Routine 12/05/23 07:35 Consult Pulmonology Routine Diagnostic Imagining Performed 12/03/23 20:07 CT chest diagnostic w con Stat Pending Results Patient Have Any Pending Studies at Discharge: No Discharge Instructions Given to Patient (Per Discharging Provider) Followup with Dr. Ballesteros in 1-2 weeks. He will order blood work. Followup with PCP in 1-2 weeks. Total Time Total Time Spent Total Time Spent (In Minutes): 32 Coding Level of Care Code 45305 INP/OBS DISCH >30 MIN Diagnoses Anemia requiring transfusions D64.9 Small cell lung cancer C34.90 Hx of pleural effusion Z87.09 Thrombocytopenia due to drugs D69.59; T50.905A Metastatic cancer to liver C78.7 Metastatic cancer to bone C79.51 Paroxysmal atrial fibrillation I48.0 Type 2 diabetes mellitus without complication, without long-term current use of insulin E11.9 Diabetes mellitus complication status: without complication Diabetes mellitus detention insulin use: without termite exterminator helper use Diabetes mellitus type: type 2 GERD (gastroesophageal reflux disease) K21.9 Pure hypercholesterolemia E78.00 Hyperlipidemia type: pure hypercholesterolemia Primary hypertension I10 Hypertension type: primary hypertension
--- NOTE | 2023-12-05 11:19 | Electrocardiogram Report ---
Test Reason : Blood Pressure : */* mmHG Vent. Rate : 76 BPM Atrial Rate : 76 BPM P-R Int : 164 ms QRS Dur : 84 ms QT Int : 402 ms P-R-T Axes : 65 48 56 degrees QTcB Int : 452 ms Normal sinus rhythm Normal ECG When compared with ECG of 04-Dec-2023 05:05, No significant change was found Confirmed by Chele Sethi ([id number]) on 12/05/2023 11:19:09 AM Referred By: REFERRED SELF Confirmed By: Chele Sethi
[2023-12-05 11:51] VITALS: BP 155/77; PULSE 91; TEMP 96.8
== END 2023-12-05 15:02 | disposition home or self-care (01) | DRG 809 ==
LOC: ED 19:21 → 2S 22:07 → SUATTDRO 22:07 → 2S 23:21